=== PATIENT | male | born 1940 | race Caucasian/White ===

== ENCOUNTER 2017-04-23 18:02 | Inpatient (IN) ==
[2017-04-23] MEDS ORDERED: *HR* OxyCODONE Immed Rel 5 MG TABLET PO PRN ×2 (18:22)
[2017-04-23] MEDS ORDERED: Sennosides 8.6 MG TABLET PO PRN (18:27)
[2017-04-23] MEDS ORDERED: Temazepam 15 MG CAPSULE PO PRN (18:28)
[2017-04-23] MEDS: *HR* LORazepam 1 MG TABLET PO SCH (21:00)
[2017-04-23] MEDS: *HR* Enoxaparin 30 MG/0.3 ML SYRINGE SQ SCH (21:02)
[2017-04-24] MEDS: *HR* OxyCODONE Immed Rel 5 MG TABLET PO PRN ×4 (04:21→20:51)
[2017-04-24 08:50] LABS: INR 1.1; Prothrombin Time 11.7 Seconds (9.4-12.1)
[2017-04-24 08:51] LABS: Activated Partial Thrombo Time 29.3 Seconds (26.0-36.0)
[2017-04-24 08:53] LABS: Basophils % 0.3 %; Eosinophils # 0.1 K/mcL (0.0-0.6); Eosinophils % 1.4 %; Hematocrit 36.2 % (37.5-50.1); Hemoglobin 11.7 g/dL (12.9-16.9); Immature Granulocytes % 0.3 % (0-4); Lymphocytes # 1.1 K/mcL (0.6-4.6); Lymphocytes % 15.8 %; Mean Corpuscular HGB Conc 32.3 g/dL (31.6-35.5); Mean Corpuscular Hemoglobin 28.8 pg (28.0-33.3); Mean Corpuscular Volume 89.2 fL (83.0-100.0); Mean Platelet Volume 8.6 fL (9.4-12.4); Monocytes # 0.9 K/mcL (0.0-1.3); Monocytes % 12.2 %; Neutrophils # 4.9 K/mcL (1.6-8.9); Platelet Count 205 K/mcL (140-400); Red Blood Count 4.06 M/mcL (4.19-5.50); Red Cell Distribution Width 13.8 % (11.5-14.5)
[2017-04-24 08:55] LABS: BUN/Creatinine Ratio 21 (6-26); Blood Urea Nitrogen 18 mg/dL (8-26); Carbon Dioxide 29 mEq/L (19-29); Chloride 98 mEq/L (98-109); Glucose 127 mg/dL (70-99); Osmolality,Calculated 285 (280-300); Potassium 4.4 mEq/L (3.5-4.5); Sodium 136 mEq/L (136-145); eGFR For African Americans > 60 (> 60); eGFR For Non-African Americans > 60 (> 60)
[2017-04-24] MEDS: *HR* Enoxaparin 30 MG/0.3 ML SYRINGE SQ SCH ×2 (09:01→18:20)
--- NOTE | 2017-04-24 10:32 | Internal Med History&Physical ---
Date of Encounter: 04/24/17 Time of Encounter: 10:30 Assessment and Plan (1) Status post total left knee replacement Current visit: Yes Status: Acute Left knee continues to have moderate amount of ecchymosis and swelling. Patient shows mild limits to range of motion. Patient states that his pain increases during mobilization but it is tolerable with current pain medication. We will continue with current plan of care. Patient to continue with physical therapy. (2) History of CVA (cerebrovascular accident) Current visit: No Status: Chronic No acute issues. Patient shows no focal neurological deficits. We will continue with physical therapy and current plan of care. (3) Constipation Current visit: Yes Status: Acute Patient complains of no BM in the last several days. He states that he is usually quite regular. We will give Dulcolax suppository now and will evaluate patient's current schedule laxatives. Patient currently taking frequent opiates for pain secondary to TKR Qualifiers: Constipation type: unspecified constipation type Qualified Code(s): K59.00 - Constipation, unspecified Internal Medicine - H&P: HPI Chief complaint: Left total knee replacement Admitted From: Intrahospital Transfer Plans for Post Hospital Care: Home History of present illness: Mr. Malik is a 76 year old male who was admitted from an [facility] for rehabilitation and physical therapy secondary to a left total knee replacement. Patient appears relaxed, but complaints of moderate pain to the left knee during ambulation. Patient states current pain medications seem to work, but do not last long enough. Patient with a history of lumbar stenosis and CVA, but no residual neurological deficits noted on exam. Patient complains of constipation stating no BM in the last several days. Past Med Surg Social Fam HX - Past Medical History Medical history: CVA, hyperlipidemia, hypertension Psychiatric history: no psych history - Past Surgical History Surgical History: other - Social History Smoking Status: Never smoker Smokeless Tobacco Status: No Alcohol use: none Drug use: none - Family History Mother Adopted: (patient asleep) Hx Family Cardiac Disorders: Yes (CHF) Hx Family Cancer: Yes (uterine CA) Father Living Status: Hx Family Cancer: Yes (Prostate CA) Internal Medicine - H&P: Meds LORazepam [Ativan] 1 mg PO HS 04/20/17 [History] Tamsulosin [Flomax] 0.4 mg PO DAILY 04/23/17 [History] 3 Allergy/AdvReac Type Severity Reaction Status Date / Time Iodinated Contrast- Oral and Allergy Itching Verified 04/20/17 08:11 IV Dye [Iodinated Contrast Media - IV Dye] All Systems PM: A 10-system review of systems was performed and is negative for pertinent findings except as documented above in the HPI. - Constitutional Constitutional: no chills, no fever(s), no night sweats - EENT Eyes: no change in vision, no discharge, no pain, no photophobia Ears: no ear discharge, no ear pain, no tinnitus Nose, mouth and throat: no dysphagia, no nasal discharge, no neck pain, no sore throat - Cardiovascular Cardiovascular ROS IM: no chest pain, no diaphoresis, no dyspnea, no lightheadedness, no palpitations, no syncope - Respiratory Respiratory: no cough, no dyspnea, no wheezing, no excessive phlegm production - Gastrointestinal Gastrointestinal: constipation, no abdominal pain, no diarrhea, no hematemesis, no hematochezia, no melena, no nausea, no vomiting - Musculoskeletal Musculoskeletal ROS IM: joint swelling, no numbness, no tingling Additional comments: Left knee pain - Integumentary Integumentary IM: no rash, no unusual bruising - Neurological Neurological ROS: no confusion, no convulsions, no focal weakness, no numbness, no tingling, no tremor(s) - Hematologic/Lymphatic Hematologic/Lymphatic: no easy bruising - Constitutional Vitals: Temp Pulse Resp BP Pulse Ox 98.2 F 76 16 137/81 95 04/24/17 01:30 04/24/17 01:30 04/24/17 01:30 04/24/17 01:30 04/24/17 01:30 General appearance: Present: A&O X 3, pleasant, no acute distress - Head Head exam: Present: atraumatic, normocephalic - Eye Eye exam: Present: normal appearance, PERRL, conjuntiva pink, sclera anicteric Pupils: Present: PERRL - Neck Neck exam general surgery: Present: supple, trachea midline. Absent: lymphadenopathy - Respiratory Respiratory exam: Present: CTAB. Absent: accessory muscle use, rales, rhonchi, wheezes - Cardiovascular Cardiovascular exam: Present: RRR, +S1, +S2. Absent: diastolic murmur, gallop, rubs, systolic murmur - GI/Abdominal GI/Abdominal exam: Present: normal bowel sounds, soft, no peritoneal signs. Absent: distended, tenderness - Extremities Exam Extremities exam: Present: warm, radial pulses palpable and symmetrical. Absent : calf tenderness, cyanotic, pedal edema Additional comments: Left knee with ecchymosis and slight swelling. Surgical incision appears intact with dressing dry and intact. - Neurological Exam Neurological exam: Present: CN II-XII intact, oriented X3, no focal deficits. Absent: pronater drift, facial droop, speech deficit - Skin Skin exam: Present: dry, intact Internal Med - H&P Results - Labs CBC & Chem 7: 04/24/17 05:05 04/24/17 05:05 Labs: Short CBC 04/24/17 Range/Units 05:05 WBC 7.0 (4.3-11.1) K/mcL Hgb 11.7 L (12.9-16.9) g/dL Hct 36.2 L (37.5-50.1) % Plt Count 205 (140-400) K/mcL Neutrophils # 4.9 (1.6-8.9) K/mcL BMP 04/24/17 05:05 Sodium 136 Potassium 4.4 Chloride 98 Carbon Dioxide 29 BUN 18 Creatinine 0.85 Glucose 127 H Calcium 9.0
[2017-04-24] MEDS ORDERED: Sennosides 8.6 MG TABLET PO ONE (12:26)
[2017-04-24] MEDS ORDERED: Bisacodyl 10 MG RECTAL SUPPOSITORY RC PRN (12:27)
[2017-04-24] MEDS: *HR* LORazepam 1 MG TABLET PO SCH (20:49)
[2017-04-25] MEDS: *HR* Enoxaparin 30 MG/0.3 ML SYRINGE SQ SCH ×2 (05:14→18:29)
[2017-04-25] MEDS: *HR* OxyCODONE Immed Rel 5 MG TABLET PO PRN ×4 (05:14→22:32)
[2017-04-25] MEDS: Ondansetron ODT 4 MG TAB.RAPDIS SL PRN (08:15)
--- NOTE | 2017-04-25 12:42 | Internal Med Progress Note ---
Date of Encounter: 04/25/17 Time of Encounter: 12:20 - Assessment and plan (1) Nausea Current Visit: Yes Status: Acute Assessment and plan: Likely contributed by constipation. Continue prn Zofran for now on top of constipation management. (2) Status post total left knee replacement Current Visit: Yes Status: Acute Assessment and plan: Continue with current plan of care. Patient to continue with physical therapy. (3) History of CVA (cerebrovascular accident) Current Visit: No Status: Chronic Assessment and plan: Stable without focal deficit. Continue current care. (4) Constipation Current Visit: Yes Status: Acute Assessment and plan: Will add scheduled Miralax daily for now. Continue PRN daily Dulcolax, BID docusate, and PRN qhs MOM. Qualifiers: Constipation type: unspecified constipation type Qualified Code(s): K59.00 - Constipation, unspecified - Time Spent With Patient less than 15 minutes - Subjective Interval history: Report feeling nauseated and constipated. No vomiting. Left knee pain has been helped with ice compresses. - Constitutional Vitals: Temp Pulse Resp BP Pulse Ox 99.9 F H 91 20 146/73 97 04/25/17 08:26 04/25/17 08:26 04/25/17 08:26 04/25/17 08:26 04/25/17 08:26 General appearance: Present: A&O X 3, pleasant, no acute distress Exam: Gen: A&Ox3, NAD. HEENT: NCAT. Neck: No palpable lymphadenopathy or thyromegaly. CV: RRR, S1S2. No murmur. Capillary refill < 2 seconds. Pulm: CTAB. Neuro: Non-focal. Skin: No rash. Ext: No pitting edema. Ice compresses over left knee observed. Internal Medicine: Result - Labs CBC & Chem 7: 04/24/17 05:05 04/24/17 05:05 - ABG Interpretation ABG results: PT/INR, D-dimer PT 11.7 Seconds (9.4-12.1) 04/24/17 05:05 Consult Discharge Plan - Plan Referrals: Burak Burk MD [Primary Care Provider] -
[2017-04-25] MEDS: *HR* LORazepam 1 MG TABLET PO SCH (20:26)
[2017-04-26 06:03] LABS: Basophils % 0.3 %; Eosinophils # 0.1 K/mcL (0.0-0.6); Eosinophils % 1.7 %; Hematocrit 32.9 % (37.5-50.1); Hemoglobin 10.7 g/dL (12.9-16.9); Immature Granulocytes % 0.6 % (0-4); Lymphocytes % 15.8 %; Mean Corpuscular HGB Conc 32.5 g/dL (31.6-35.5); Mean Corpuscular Volume 89.2 fL (83.0-100.0); Mean Platelet Volume 8.4 fL (9.4-12.4); Monocytes # 0.6 K/mcL (0.0-1.3); Monocytes % 9.8 %; Neutrophils # 4.6 K/mcL (1.6-8.9); Platelet Count 295 K/mcL (140-400); Red Blood Count 3.69 M/mcL (4.19-5.50); Red Cell Distribution Width 13.4 % (11.5-14.5); Segmented Neutrophils % 71.8 %
[2017-04-26] MEDS: *HR* Enoxaparin 30 MG/0.3 ML SYRINGE SQ SCH ×2 (06:14→16:38)
[2017-04-26] MEDS: MOM Conc 10 ML UD.LIQ PO PRN (06:14)
[2017-04-26] MEDS: *HR* OxyCODONE Immed Rel 5 MG TABLET PO PRN ×2 (06:15→16:37)
--- NOTE | 2017-04-26 11:59 | Internal Med Progress Note ---
Date of Encounter: 04/26/17 Time of Encounter: 11:20 - Assessment and plan (1) Nausea Current Visit: Yes Status: Acute Assessment and plan: Likely contributed by constipation. Continue prn Zofran for now on top of constipation management. (2) Status post total left knee replacement Current Visit: Yes Status: Acute Assessment and plan: Continue with current plan of care. Patient to continue with physical therapy. (3) History of CVA (cerebrovascular accident) Current Visit: No Status: Chronic Assessment and plan: Stable without focal deficit. Continue current care. (4) Constipation Current Visit: Yes Status: Acute Assessment and plan: Will increase Miralax to BID for now. Continue PRN daily Dulcolax, BID docusate , and PRN qhs MOM. Qualifiers: Constipation type: unspecified constipation type Qualified Code(s): K59.00 - Constipation, unspecified (5) Normocytic anemia Current Visit: Yes Status: Acute Assessment and plan: H&H decreasing, but not to transfusion threshold yet. - Continue to trend CBC, awaiting FOBT. - Time Spent With Patient less than 15 minutes - Subjective Interval history: Still no BM and is feeling somewhat miserable because of this. - Constitutional Vitals: Temp Pulse Resp BP Pulse Ox 98.3 F 81 15 138/79 94 04/26/17 07:33 04/26/17 07:33 04/26/17 07:33 04/26/17 07:33 04/26/17 07:33 General appearance: Present: A&O X 3, pleasant, no acute distress Exam: Gen: A&Ox3, NAD. HEENT: NCAT. Neck: No palpable lymphadenopathy or thyromegaly. CV: RRR, S1S2. No murmur. Capillary refill < 2 seconds. Pulm: CTAB. Abd: (+)BS. NDNT. Neuro: Non-focal. Skin: No rash. Ext: No pitting edema. Surgical site over left knee c/d/i. Internal Medicine: Result - Labs CBC & Chem 7: 04/26/17 05:50 04/24/17 05:05 Labs: Short CBC 04/26/17 Range/Units 05:50 WBC 6.4 (4.3-11.1) K/mcL Hgb 10.7 L (12.9-16.9) g/dL Hct 32.9 L (37.5-50.1) % Plt Count 295 (140-400) K/mcL Neutrophils # 4.6 (1.6-8.9) K/mcL - ABG Interpretation ABG results: PT/INR, D-dimer PT 11.7 Seconds (9.4-12.1) 04/24/17 05:05 - VTE Documentation of Mechanical Device: Graduated compression elastic hosiery Consult Discharge Plan - Plan Referrals: Burak Burk MD [Primary Care Provider] -
[2017-04-26] MEDS: *HR* LORazepam 1 MG TABLET PO SCH (20:39)
[2017-04-27] MEDS: *HR* OxyCODONE Immed Rel 5 MG TABLET PO PRN ×3 (01:48→13:09)
[2017-04-27 05:20] LABS: Basophils % 0.4 %; Eosinophils # 0.1 K/mcL (0.0-0.6); Eosinophils % 1.4 %; Hematocrit 34.7 % (37.5-50.1); Immature Granulocytes % 0.4 % (0-4); Lymphocytes # 1.2 K/mcL (0.6-4.6); Lymphocytes % 16.6 %; Mean Corpuscular HGB Conc 31.7 g/dL (31.6-35.5); Mean Corpuscular Hemoglobin 28.4 pg (28.0-33.3); Mean Corpuscular Volume 89.4 fL (83.0-100.0); Mean Platelet Volume 8.4 fL (9.4-12.4); Monocytes # 0.8 K/mcL (0.0-1.3); Monocytes % 10.4 %; Neutrophils # 5.1 K/mcL (1.6-8.9); Platelet Count 348 K/mcL (140-400); Red Blood Count 3.88 M/mcL (4.19-5.50); Red Cell Distribution Width 13.2 % (11.5-14.5); Segmented Neutrophils % 70.8 %
[2017-04-27 05:30] LABS: BUN/Creatinine Ratio 21 (6-26); Blood Urea Nitrogen 17 mg/dL (8-26); Calcium 8.9 mg/dL (8.6-10.8); Carbon Dioxide 27 mEq/L (19-29); Chloride 100 mEq/L (98-109); Glucose 118 mg/dL (70-99); Osmolality,Calculated 287 (280-300); Potassium 4.9 mEq/L (3.5-4.5); Sodium 137 mEq/L (136-145); eGFR For African Americans > 60 (> 60); eGFR For Non-African Americans > 60 (> 60)
[2017-04-27] MEDS: *HR* Enoxaparin 30 MG/0.3 ML SYRINGE SQ SCH ×2 (05:39→18:37)
[2017-04-27] MEDS: MOM Conc 10 ML UD.LIQ PO PRN (05:57)
--- NOTE | 2017-04-27 12:17 | Internal Med Progress Note ---
Date of Encounter: 04/27/17 Time of Encounter: 12:16 - Assessment and plan (1) Status post total left knee replacement Current Visit: Yes Status: Acute Assessment and plan: Patient continues with complaints of moderate pain to the left knee which becomes severe during mobilization. Left knee continues with ecchymosis and slight swelling. Surgical incision appears healthy Reports of hesitation during therapy due to pain. Patient to continue with continuous icing. Patient states current pain medication does not last long enough between dosing. We will start on low dose OxyContin for 14 days and continue with current when necessary medications. Patient to continue with physical therapy. (2) History of CVA (cerebrovascular accident) Current Visit: No Status: Chronic Assessment and plan: Stable without focal deficit. Continue current care. (3) Constipation Current Visit: Yes Status: Acute Assessment and plan: Patient continues with complaints of constipation. We will increase current scheduled laxatives and will give a bottle of magnesium titrate now. Abdomen appears negative on exam Qualifiers: Constipation type: unspecified constipation type Qualified Code(s): K59.00 - Constipation, unspecified - Subjective Interval history: Patient appears relaxed, but observed grimacing while attempting to ambulate. Patient states to have increasing pain localizing in that his current pain medications have not lasted long enough between dosages. Therapy states the patient has been hesitant to mobilize due to increased pain. Patient also has complaints of continued constipation with no BM after recent occasional interventions. Patient states he is usually very regular at home. Patient denies any other current issues. Afebrile - Constitutional Vitals: Temp Pulse Resp BP Pulse Ox 98.3 F 88 16 134/83 96 04/27/17 07:35 04/27/17 07:35 04/27/17 07:35 04/27/17 07:35 04/27/17 07:35 General appearance: Present: A&O X 3, pleasant, no acute distress - Head Head exam: Present: atraumatic, normocephalic - Eye Eye exam: Present: PERRL, conjuntiva pink, sclera anicteric Pupils: Present: PERRL - Neck Neck exam general surgery: Present: supple, trachea midline. Absent: lymphadenopathy - Respiratory Respiratory exam: Present: CTAB. Absent: accessory muscle use, rales, rhonchi, wheezes - Cardiovascular Cardiovascular exam: Present: RRR, +S1, +S2. Absent: diastolic murmur, gallop, rubs, systolic murmur - GI/Abdominal GI/Abdominal exam: Present: normal bowel sounds, soft, no peritoneal signs. Absent: distended, tenderness - Extremities Exam Extremities exam: Present: warm, radial pulses palpable and symmetrical. Absent : calf tenderness, cyanotic, pedal edema Additional comments: Left knee continues with moderate amount of ecchymosis secondary to surgery. Slight swelling observed. Patient continues with continuous icing. Slight limitation to range of motion. Surgical incision appears intact and healthy. - Neurological Exam Neurological exam: Present: CN II-XII intact, oriented X3, no focal deficits. Absent: pronater drift, facial droop, speech deficit - Skin Skin exam: Present: dry, intact Internal Medicine: Result - Labs CBC & Chem 7: 04/27/17 05:00 04/27/17 05:00 Labs: Short CBC 04/27/17 Range/Units 05:00 WBC 7.2 (4.3-11.1) K/mcL Hgb 11.0 L (12.9-16.9) g/dL Hct 34.7 L (37.5-50.1) % Plt Count 348 (140-400) K/mcL Neutrophils # 5.1 (1.6-8.9) K/mcL BMP 04/27/17 05:00 Sodium 137 Potassium 4.9 H Chloride 100 Carbon Dioxide 27 BUN 17 Creatinine 0.80 Glucose 118 H Calcium 8.9 - ABG Interpretation ABG results: PT/INR, D-dimer PT 11.7 Seconds (9.4-12.1) 04/24/17 05:05 - VTE Documentation of Mechanical Device: Graduated compression elastic hosiery Consult Discharge Plan - Plan Referrals: Burak Burk MD [Primary Care Provider] -
[2017-04-27] MEDS: *HR* OxyCODONE ER (12 HR) 10 MG TABLET PO SCH (18:39)
[2017-04-27] MEDS: *HR* LORazepam 1 MG TABLET PO SCH (22:38)
[2017-04-27] MEDS: Sennosides 8.6 MG TABLET PO SCH (22:38)
[2017-04-28] MEDS: *HR* Enoxaparin 30 MG/0.3 ML SYRINGE SQ SCH ×2 (06:52→17:40)
[2017-04-28] MEDS: *HR* OxyCODONE ER (12 HR) 10 MG TABLET PO SCH ×2 (06:52→17:40)
[2017-04-28] MEDS: Sennosides 8.6 MG TABLET PO SCH ×2 (08:29→20:32)
[2017-04-28] MEDS: Ondansetron ODT 4 MG TAB.RAPDIS SL PRN (08:47)
[2017-04-28] MEDS: *HR* OxyCODONE Immed Rel 5 MG TABLET PO PRN ×3 (11:36→20:33)
--- NOTE | 2017-04-28 13:04 | Internal Med Progress Note ---
Date of Encounter: 04/28/17 Time of Encounter: 13:01 - Assessment and plan (1) Status post total left knee replacement Current Visit: Yes Status: Acute Assessment and plan: Patient continues with complaints of moderate pain to the left knee which becomes severe during mobilization. Left knee continues with ecchymosis and slight swelling. Surgical incision appears healthy. Recently started on Oxycontin with minimal effect. Will continue short acting oxycontin and start on NSAID and flexeril. Patient to continue with physical therapy. (2) History of CVA (cerebrovascular accident) Current Visit: No Status: Chronic Assessment and plan: Stable without focal deficit. Continue current care. - Subjective Interval history: Patient appears relaxed, but observed grimacing and favoring his left leg while attempting to ambulate. Pt states that he has not noted much changed in pain coverage with the addition of long acting coverage. - Constitutional Vitals: Temp Pulse Resp BP Pulse Ox 98.2 F 83 18 143/63 95 04/28/17 07:52 04/28/17 07:52 04/28/17 07:52 04/28/17 07:52 04/28/17 07:52 General appearance: Present: A&O X 3, pleasant, no acute distress - Head Head exam: Present: atraumatic, normocephalic - Eye Eye exam: Present: PERRL, conjuntiva pink, sclera anicteric Pupils: Present: PERRL - Neck Neck exam general surgery: Present: supple, trachea midline. Absent: lymphadenopathy - Respiratory Respiratory exam: Present: CTAB. Absent: accessory muscle use, rales, rhonchi, wheezes - Cardiovascular Cardiovascular exam: Present: RRR, +S1, +S2. Absent: diastolic murmur, gallop, rubs, systolic murmur - GI/Abdominal GI/Abdominal exam: Present: normal bowel sounds, soft, no peritoneal signs. Absent: distended, tenderness - Extremities Exam Extremities exam: Present: warm, radial pulses palpable and symmetrical. Absent : calf tenderness, cyanotic, pedal edema Additional comments: Left knee remains ecchymotic and slightly swollen. Slight limitations to the left knee during ROM. Surgical incision remains dry and intact. - Neurological Exam Neurological exam: Present: CN II-XII intact, oriented X3, no focal deficits. Absent: pronater drift, facial droop, speech deficit - Skin Skin exam: Present: dry, intact Internal Medicine: Result - Labs CBC & Chem 7: 04/27/17 05:00 04/27/17 05:00 - ABG Interpretation ABG results: PT/INR, D-dimer PT 11.7 Seconds (9.4-12.1) 04/24/17 05:05 - VTE Documentation of Mechanical Device: Graduated compression elastic hosiery Consult Discharge Plan - Plan Referrals: Burak Burk MD [Primary Care Provider] -
[2017-04-28] MEDS: Ibuprofen 600 MG TABLET PO PRN ×2 (14:01→20:32)
[2017-04-28] MEDS: *HR* LORazepam 1 MG TABLET PO SCH (20:30)
[2017-04-29] MEDS: *HR* OxyCODONE ER (12 HR) 10 MG TABLET PO SCH ×2 (05:48→18:22)
[2017-04-29] MEDS: *HR* Enoxaparin 30 MG/0.3 ML SYRINGE SQ SCH ×2 (05:48→18:22)
[2017-04-29] MEDS: Sennosides 8.6 MG TABLET PO SCH ×2 (09:08→20:57)
--- NOTE | 2017-04-29 11:40 | Internal Med Progress Note ---
Date of Encounter: 04/29/17 Time of Encounter: 11:38 - Assessment and plan (1) Status post total left knee replacement Current Visit: Yes Status: Acute Assessment and plan: Pain improving per patient. Will continue ibuprofen, Flexeril, OxyContin, and oxycodone. Continue PT\OT. Will follow progress. Follow up with ortho as scheduled (2) History of CVA (cerebrovascular accident) Current Visit: No Status: Chronic Assessment and plan: Stable without focal deficit. Continue current care. - Time Spent With Patient less than 15 minutes - Subjective Interval history: Patient states pain has improved and slept better last night and he is slept in a long time. Flexeril and ibuprofen were added into OxyContin and oxycodone pain regimen. Participating well with therapy. Denies constipation or any other issues at this time. - Constitutional Vitals: Temp Pulse Resp BP Pulse Ox 98.1 F 73 16 126/77 97 04/29/17 07:31 04/29/17 07:31 04/29/17 07:31 04/29/17 07:31 04/29/17 07:31 General appearance: Present: A&O X 3, pleasant, no acute distress, answers questions appropriately - Head Head exam: Present: atraumatic, normocephalic - Eye Eye exam: Present: PERRL, conjuntiva pink, sclera anicteric Pupils: Present: PERRL - Neck Neck exam general surgery: Present: supple, trachea midline. Absent: lymphadenopathy - Respiratory Respiratory exam: Present: CTAB. Absent: accessory muscle use, rales, rhonchi, wheezes - Cardiovascular Cardiovascular exam: Present: RRR, +S1, +S2. Absent: diastolic murmur, gallop, rubs, systolic murmur - GI/Abdominal GI/Abdominal exam: Present: normal bowel sounds, soft, no peritoneal signs. Absent: distended, tenderness - Extremities Exam Extremities exam: Present: warm, radial pulses palpable and symmetrical. Absent : calf tenderness, cyanotic, pedal edema - Neurological Exam Neurological exam: Present: CN II-XII intact, oriented X3, no focal deficits. Absent: pronater drift, facial droop, speech deficit - Skin Skin exam: Present: dry, intact Additional comments: Left knee incision with dressing dry and intact. Incision well approximated. No drainage or sign of infection. Slight edema around incision site. With minimal bruising Internal Medicine: Result - Labs CBC & Chem 7: 04/27/17 05:00 04/27/17 05:00 - ABG Interpretation ABG results: PT/INR, D-dimer PT 11.7 Seconds (9.4-12.1) 04/24/17 05:05 - VTE Documentation of Mechanical Device: Graduated compression elastic hosiery Consult Discharge Plan - Plan Referrals: Tana Lopez, FIFI [Physician Food Bagging Machine Operator] - 05/01/17 3:00 pm (follow up with x-rays ) Burak Burk MD [Primary Care Provider] -
[2017-04-29] MEDS: *HR* OxyCODONE Immed Rel 5 MG TABLET PO PRN ×2 (14:21→20:58)
[2017-04-29] MEDS: *HR* LORazepam 1 MG TABLET PO SCH (20:55)
[2017-04-30] MEDS: *HR* Enoxaparin 30 MG/0.3 ML SYRINGE SQ SCH (06:24)
[2017-04-30] MEDS: *HR* OxyCODONE ER (12 HR) 10 MG TABLET PO SCH (06:24)
[2017-04-30 06:54] VITALS: BP 127/70
[2017-04-30] MEDS: *HR* OxyCODONE Immed Rel 5 MG TABLET PO PRN (09:36)
[2017-04-30] MEDS: Sennosides 8.6 MG TABLET PO SCH (09:37)
--- NOTE | 2017-04-30 12:01 | Internal Med Progress Note ---
Date of Encounter: 04/30/17 Time of Encounter: 11:59 - Assessment and plan (1) Status post total left knee replacement Current Visit: Yes Status: Acute Assessment and plan: Pain improving. Will continue ibuprofen, Flexeril, OxyContin, and oxycodone. Continue PT\OT. Will follow progress. Follow up with ortho as scheduled (2) History of CVA (cerebrovascular accident) Current Visit: No Status: Chronic Assessment and plan: Stable without focal deficit. Continue current care. - Time Spent With Patient less than 15 minutes - Subjective Interval history: Patient states continues to be controlled with pain meds. participating well with therapy. no drainage from left knee. bowels moving. denies fever, chills , NVD. - Constitutional Vitals: Temp Pulse Resp BP Pulse Ox 97.8 F 81 17 127/70 95 04/30/17 06:51 04/30/17 06:51 04/30/17 06:51 04/30/17 06:51 04/30/17 06:51 General appearance: Present: A&O X 3, pleasant, no acute distress, answers questions appropriately - Head Head exam: Present: atraumatic, normocephalic - Eye Eye exam: Present: PERRL, conjuntiva pink, sclera anicteric Pupils: Present: PERRL - Neck Neck exam general surgery: Present: supple, trachea midline. Absent: lymphadenopathy - Respiratory Respiratory exam: Present: CTAB. Absent: accessory muscle use, rales, rhonchi, wheezes - Cardiovascular Cardiovascular exam: Present: RRR, +S1, +S2. Absent: diastolic murmur, gallop, rubs, systolic murmur - GI/Abdominal GI/Abdominal exam: Present: normal bowel sounds, soft, no peritoneal signs. Absent: distended, tenderness - Extremities Exam Extremities exam: Present: warm, radial pulses palpable and symmetrical. Absent : calf tenderness, cyanotic, pedal edema - Neurological Exam Neurological exam: Present: CN II-XII intact, oriented X3, no focal deficits. Absent: pronater drift, facial droop, speech deficit - Skin Skin exam: Present: dry, intact Additional comments: left knee incision. dry and intact drsg. well approximated. no edema no signs of infection. Internal Medicine: Result - Labs CBC & Chem 7: 04/27/17 05:00 04/27/17 05:00 - ABG Interpretation ABG results: PT/INR, D-dimer PT 11.7 Seconds (9.4-12.1) 04/24/17 05:05 - VTE Documentation of Mechanical Device: Graduated compression elastic hosiery Consult Discharge Plan - Plan Referrals: Tana Lopez PAC [Physician Shot Lighter] - 05/01/17 3:00 pm (follow up with x-rays ) Burak Burk MD [Primary Care Provider] - 05/06/17 1:45 pm
--- NOTE | 2017-04-30 14:01 | Discharge Summary ---
Date of Encounter: 04/30/17 Time of Encounter: 13:58 - Discharge Diagnosis (1) Status post total left knee replacement Priority: Primary Status: Acute (2) History of loop recorder Priority: Secondary Status: Chronic - Discharge Medications Home Medications: LORazepam [Ativan] 1 mg PO HS 04/20/17 [History] Tamsulosin [Flomax] 0.4 mg PO DAILY 04/23/17 [History] Aspirin 04/30/17 [History] Aspirin 04/30/17 [History] LORazepam [Ativan] 04/30/17 [History] Allergies/Adverse Reactions: 3 Allergy/AdvReac Type Severity Reaction Status Date / Time Iodinated Contrast- Oral and Allergy Itching Verified 04/20/17 08:11 IV Dye [Iodinated Contrast Media - IV Dye] Date of admission: 04/23/17 18:45 Primary care physician: Burak Burk MD Consults: 04/23/17 18:59 Consult to Occupational Therapy [CONS] Routine Comment: Evaluate, develop and implement POC Reason for Consult: LTKR Consult to Physical Therapy [CONS] Routine Comment: Evaluate, develop and implement POC Reason for Consult: LTKR Consult to Recreational Therapy [CONS] Routine Comment: Evaluate, develop and implement POC Discharging clinician: Dontrell Browne Anticipated date of discharge: 04/30/17 - Patient Status Disposition: Home Health Service Condition: Good Functional capacity at discharge: uses cane/walker Overall status at discharge: patient is progressing back to baseline - Discharge Instructions Instructions: Wound Infection (DC), Total Knee Replacement (DC), Pain Management After Surgery (DC) Follow Up With: Tana Lopez PAC [Physician Hardscape Foreman] - 05/01/17 3:00 pm (follow up with x-rays ) uBrak Burk MD [Primary Care Provider] - 05/06/17 1:45 pm - Diet and Activity Activity: ambulate only with your walker Diet: advance to your usual diet Interval History: Patient was brought referred [facility] [place] after total knee replacement for rehabilitation. Hospital course: Mr. Malik is a 76 year old male Who was brought here for rehabilitation is done well can do household distances as his to help and is getting a prescription and follow-up appointment with the surgeon - Time Spent with Patient Total time spent providing and/or coordinating discharge services: Less than 30 minutes - Constitutional Vitals: Temp Pulse Resp BP Pulse Ox 97.8 F 81 17 127/70 95 04/30/17 06:51 04/30/17 06:51 04/30/17 06:51 04/30/17 06:51 04/30/17 06:51 General appearance: Present: A&O X 3, pleasant, no acute distress, answers questions appropriately - Head Head exam: Present: atraumatic, normal inspection, normocephalic - Neck Neck exam general surgery: Present: supple, trachea midline. Absent: lymphadenopathy - Respiratory Respiratory exam: Present: CTAB. Absent: accessory muscle use, rales, rhonchi, wheezes - Cardiovascular Cardiovascular exam: Present: RRR, +S1, +S2. Absent: diastolic murmur, gallop, rubs, systolic murmur - VTE Documentation of Mechanical Device: Graduated compression elastic hosiery
--- NOTE | 2017-04-30 14:31 | Discharge Summary ---
Date of Encounter: 04/30/17 Time of Encounter: 14:29 - Discharge Diagnosis (1) Status post total left knee replacement Priority: Primary Status: Acute (2) History of loop recorder Priority: Secondary Status: Chronic - Discharge Medications Home Medications: LORazepam [Ativan] 1 mg PO HS 04/20/17 [History] Tamsulosin [Flomax] 0.4 mg PO DAILY 04/23/17 [History] Aspirin 04/30/17 [History] Aspirin 04/30/17 [History] LORazepam [Ativan] 04/30/17 [History] Allergies/Adverse Reactions: 3 Allergy/AdvReac Type Severity Reaction Status Date / Time Iodinated Contrast- Oral and Allergy Itching Verified 04/20/17 08:11 IV Dye [Iodinated Contrast Media - IV Dye] Date of admission: 04/23/17 18:45 Primary care physician: Burak Burk MD Consults: 04/23/17 18:59 Consult to Occupational Therapy [CONS] Routine Comment: Evaluate, develop and implement POC Reason for Consult: LTKR Consult to Physical Therapy [CONS] Routine Comment: Evaluate, develop and implement POC Reason for Consult: LTKR Consult to Recreational Therapy [CONS] Routine Comment: Evaluate, develop and implement POC Discharging clinician: Dontrell Browne Anticipated date of discharge: 04/30/17 - Patient Status Disposition: Home Health Service Functional capacity at discharge: uses cane/walker Overall status at discharge: patient is progressing back to baseline - Discharge Instructions Instructions: Wound Infection (DC), Total Knee Replacement (DC), Pain Management After Surgery (DC) Follow Up With: Tana Lopez PAC [Physician Cath Lab Technologist] - 05/01/17 3:00 pm (follow up with x-rays ) Burak Burk MD [Primary Care Provider] - 05/06/17 1:45 pm - Diet and Activity Activity: ambulate only with your walker Diet: advance to your usual diet Interval History: Visit [place] is performed well after being brought here status post total knee replacement. He has really picked up spaces in the last 24 hours Hospital course: Mr. Malik is a 76 year old male who now can do household distances is working with his and will get home health PT and nursing. - Time Spent with Patient Total time spent providing and/or coordinating discharge services: Less than 30 minutes - Constitutional Vitals: Temp Pulse Resp BP Pulse Ox 97.8 F 81 17 127/70 95 04/30/17 06:51 04/30/17 06:51 04/30/17 06:51 04/30/17 06:51 04/30/17 06:51 General appearance: Present: A&O X 3, pleasant, no acute distress, answers questions appropriately - Head Head exam: Present: atraumatic, normal inspection, normocephalic - Neck Neck exam general surgery: Present: supple, trachea midline. Absent: lymphadenopathy - Respiratory Respiratory exam: Present: CTAB. Absent: accessory muscle use, rales, rhonchi, wheezes - Cardiovascular Cardiovascular exam: Present: RRR, +S1, +S2. Absent: diastolic murmur, gallop, rubs, systolic murmur - VTE Documentation of Mechanical Device: Graduated compression elastic hosiery
--- NOTE | 2017-04-30 14:37 | Physician Discharge Referral ---
Home Health/Hosp Referral Info Transfer to: Home Health Provider in Charge Post Discharge: PCP - Diagnosis (1) Status post total left knee replacement Priority: Primary Status: Acute (2) History of loop recorder Priority: Secondary Status: Chronic - Respiratory Orders Smoking Cessation: Smoking cessation has been advised. For more information, call the [place] Tobacco Quit Line at 3-683-ATEW-NOW. - Diet/Nutrition Diet/Nutrition Orders: Regular - Activity Activity Orders: Walker - Services Needed Following services are medically necessary services: Nursing, Physical Therapy - Transfer Medications Home Medications: LORazepam [Ativan] 1 mg PO HS 04/20/17 [History] Tamsulosin [Flomax] 0.4 mg PO DAILY 04/23/17 [History] Aspirin 04/30/17 [History] Aspirin 04/30/17 [History] LORazepam [Ativan] 04/30/17 [History] Allergies/Adverse Reactions: 3 Allergy/AdvReac Type Severity Reaction Status Date / Time Iodinated Contrast- Oral and Allergy Itching Verified 04/20/17 08:11 IV Dye [Iodinated Contrast Media - IV Dye] Certification: Further, I certify that my clinical findings support that this patient is homebound (i.e. absences from home require considerable and taxing effort and are for medical reasons or [facility] services or infrequently or short duration when for other reasons) because: Homebound Reason: Patient requires assistance of a person or device to safely leave home Attestation: My signature below is to certify that this patient is under my care and that I, or nurse practitioner, or a physician's logistics assistant working with me, has a face-to -face encounter with this patient.
== END 2017-04-30 14:15 | disposition home health service (06) | DRG 561 ==
LOC: INPGRE 18:45
PROVIDERS: ADMIT Internal Medicine; ATTEND Internal Medicine